=== PATIENT | male | born 1955 | race Caucasian/White ===

== ENCOUNTER 2023-11-26 07:50 | Emergency (ER) | payer MEDICARE, OTHER, SELFPAY ==
[2023-11-26 07:59] VITALS: BP 132/77
[2023-11-26] MEDS: NSS 1000 IV (09:07)
[2023-11-26] MEDS: TYLENOL 650 MG PO (09:08)
[2023-11-26 09:09] VITALS: BP 127/73; BMI 27.0
[2023-11-26 09:12] LABS: Urine Albumin Trace (Neg - Trace); Urine Bilirubin Negative (Negative); Urine Character Clear (Clear); Urine Color Yellow; Urine Glucose Negative (Negative); Urine Ketone Negative (Negative); Urine Leukocyte 2+ (Negative); Urine Nitrite Negative (Negative); Urine Occult Blood 1+ (Negative); Urine Urobilinogen Negative (Neg - 1+); Urine pH 6.5 (5.0-9.0)
[2023-11-26 09:14] LABS: % Basophils 0.3 % (0-2); % Immature Granulocytes 0.5 % (0-0.5); % Lymphocytes 10.1 % (20.5-51.1); % Monocytes 8.5 % (1.7-9.3); % Neutrophils 79.6 % (42.2-75.2); Absolute Eosinophils 0.1 10^3/uL (0-0.7); Absolute Immature Granulocytes 0.1 10^3/uL (0-0.05); Absolute Lymphocytes 1.3 10^3/uL (1.2-3.4); Absolute Monocytes 1.1 10^3/uL (0.1-0.6); Absolute Neutrophils 10.1 10^3/uL (1.4-6.5); Hematocrit 35.8 % (39.0-52.0); Hemoglobin 12.3 g/dL (13.0-18.0); Mean Corp Hgb Conc. 34.4 g/dL (33.0-37.0); Mean Corpuscular Hgb 29.3 pg (27.0-31.0); Mean Corpuscular Volume 85.2 fL (80.0-94.0); Mean Platelet Volume 9.1 fL (7.4-10.4); Nucleated Red Blood Cells % 0 % (-); Platelet Count 283 10^3/uL (130-400); Red Cell Dist. Width 14.2 % (11.5-14.5); White Blood Cell Count 12.7 10^3/uL (4.8-10.8)
[2023-11-26 09:27] LABS: ALT (SGPT) 27 U/L (0-50); AST (SGOT) 23 U/L (17-59); Albumin 3.9 g/dl (3.5-5.0); Alkaline Phosphatase 59 U/L (38-126); Blood Urea Nitrogen 17 mg/dl (9-20); Calcium 9.2 mg/dl (8.4-10.2); Carbon Dioxide 28 mmol/L (22-30); Chloride 105 mmol/L (98-107); Estimated Creatinine Clearance 83 ml/min; Glucose 122 mg/dl (70-99); Lipase 62 U/L (23-300); Potassium 3.6 mmol/L (3.5-5.1); Sodium 137 mmol/L (135-145); Total Bilirubin 0.8 mg/dl (0.2-1.3); eGFR > 60.00
--- NOTE | 2023-11-26 09:27 | ED.GENMED ---
Addendum entered and electronically signed by Martha Pandya PA-C 11/29/23 07:20:
urine culture grew out proteus
on cefdinir
sensitive, no treatment change required
Original Note:
History of Present Illness
General
Chief Complaint: Abdominal Symptoms
Source: patient
Exam Limitations: none
Time Seen by Provider: 11/26/23 08:01
Nursing documentation reviewed up to this point in time: agreed with
Travel History
Have you had any contact with someone who has COVID-19?: No
Do you have any symptoms of coronavirus? Fever > 100 degrees, chills, cough, shortness of breath, sore throat, loss of taste or smell, muscle aches, or headache?: No
History of Present Illness
History of Present Illness:
68-year-old male with a history of hypertension, hyperlipidemia and UTIs followed by dr fajardo from urology presents for symptoms suspicious for UTI which began a few days ago with left flank pain followed by dysuria and urinary frequency. Patient
has never had any obstructive uropathy. Within the past few months he had a cystoscopy which was normal. Patient says his last UTI was sometime in the fall 2022. He was hospitalized once for pyelonephritis,
Patient thinks he had a fever yesterday because he felt hot and then cold. He did not check his temperature. He denies any nausea, vomiting, diarrhea, hematuria
Past History
Past History
ED Past Medical History: HTN and Hypercholesterolemia
ED Past Surgical History: None
Social History
Tobacco: Non-smoker
Alcohol: Daily
Drug: None
Personal:
Living: with family
Employment: Employed
Family History
Family History: Other
Review of Systems
Review of Systems
Allergies reviewed?: Yes
All Other Systems: Not applicable
Phy Exam
Physical Exam
Physical Exam:
GENERAL: Alert, appears comfortable
Neck: supple
CARDIAC: Regular rate and rhythm .
LUNGS: Clear breath sounds bilaterally, no acute respiratory distress, no wheezes/rales/rhonchi
ABDOMEN: Soft, normal bowel sounds, nondistended, no abdominal tenderness no guarding, no rebound, neg salazar's
Mild left CVA tenderness
: normal inspection of region
nontender testicles b/l
no rashes
NEUROLOGICAL: Alert and oriented, no focal neuro deficits
SKIN: Warm and dry, skin intact.
PSYCH: Normal and appropriate interaction.
Course
Orders/Labs/Results
Orders:
Orders
11/26/23 08:24
0.9% Sodium Chloride 1000 ml [Nss] 1,000 ml IV BOLUS
Acetaminophen [Tylenol] 650 mg PO NOW STA
11/26/23 08:59
Complete Blood Count/With Diff Urgent
Comprehensive Metabolic Panel Urgent
Lipase Urgent
Urinalysis Reflex To Culture Urgent
Date Specimen was Collected: 11/26/23
Time Specimen was Collected: 08:56
Urine Microscopic Reflex Cult Urgent
Urine Culture Urgent
ROMARIO Source: U
Specimen Description:
Date Specimen was Collected: 11/26/23
Time Specimen was Collected: 08:56
11/26/23 09:17
CT Abd/Pel (IV only)-DH only Urgent
Comment:
Reason For Exam: left falnk pain, fever, uti
11/26/23 11:24
CefTRIAXone [Rocephin] 1,000 mg IV NOW STA
11/26/23 11:37
Sterile Water [Sterile Water For Injection] 10 ml .ROUTE .STK-MED ONE
11/26/23 11:39
Sterile Water [Sterile Water For Injection] 10 ml .ROUTE .STK-MED ONE
Abnormal Lab Results
11/26/23
08:59
WBC 12.7 H 10^3/uL
(4.8-10.8)
RBC 4.20 L 10^6/uL
(4.70-6.10)
Hgb 12.3 L g/dL
(13.0-18.0)
Hct 35.8 L %
(39.0-52.0)
Abs Immat Gran (auto) 0.1 H 10^3/uL
(0-0.05)
Absolute Neuts (auto) 10.1 H 10^3/uL
(1.4-6.5)
Absolute Monos (auto) 1.1 H 10^3/uL
(0.1-0.6)
Neutrophils % 79.6 H %
(42.2-75.2)
Lymphocytes % 10.1 L %
(20.5-51.1)
Glucose 122 H mg/dl
(70-99)
Ur Occult Blood Reflex 1+ A
(Negative)
Leukocyte Esterase Rfl 2+ A
(Negative)
Urine RBC 3-6 A /HPF
(0-2)
Urine WBC (Reflex) 26-30 A /HPF
(0-5)
Urine Bacteria (Reflex) Few A
(Negative)
11/26/23 08:59
11/26/23 08:59
Vital Signs
Initial and Last Documented VS:
Initial Vital Signs
Temp Pulse Resp BP Pulse Ox
98.0 F 82 16 132/77 98
11/26/23 07:59 11/26/23 07:59 11/26/23 07:59 11/26/23 07:59 11/26/23 07:59
Last Documented Vital Signs
Temp Pulse Resp BP Pulse Ox
98.0 F 64 18 127/74 95
11/26/23 07:59 11/26/23 11:43 11/26/23 11:43 11/26/23 11:43 11/26/23 11:43
MDM/Problems Addressed
Differential Diagnosis Includes:
UTI, obstructive uropathy, pyelonephritis
MDM/Problems Addressed:
68-year-old male with a history of previous UTIs presents with similar symptoms starting with left flank pain followed by dysuria and frequency. He has no radiation into his testicle or testicular pain, rectal pressure, penile discharge. He
thought he may have had a fever yesterday but nothing today. He is not having any vomiting. He is never had obstructive uropathy in the past.
On exam the patient had mild tenderness to the bladder and minimal CVA tenderness on the left
He had a normal temperature
His white count was mildly elevated at 12.7 with a left shift, creatinine was normal, UA is positive for blood, 2+ leukocytes, 26-38 WBCs, few bacteria and only 3-[address] with contrast shows no obvious signs of hydronephrosis,
pyelonephritis
Patient is feeling well, rechecked his temperature at 98.5. Will treat with 1 dose of Rocephin in the ER and discharged on cefdinir twice daily. Previously patient has had Citrobacter and E. coli UTIs with sensitivity to third-generation
cephalosporins
*Critical Care Note
Total Time (30-74mins, 75-104mins- exclusive of procedures): Not Applicable
ED Attending Note
-
Portions of this chart may have been created with voice recognition software.� Occasional wrong word or��sound alike� substitutions may have occurred due to the inherent limitations of voice recognition software.
Discharge Plan
Departure
Patient Disposition: Home (Routine Discharge)
Date of Disposition: 11/26/23
Time of Disposition: 11:41
Patient with high blood pressure during this ER visit?: No
Condition: Fair
Covid-19: Not Applicable
Discharge Problem:
UTI (urinary tract infection)
Instructions: Urinary Tract Infection, Adult (DC)
Prescriptions:
New
cefdinir 300 mg capsule
300 mg PO Q12H Qty: 20 0RF
No Action
losartan 50 MG tablet
100 mg PO QPM
simvastatin 20 MG tablet
20 mg PO HS
amlodipine 5 MG tablet
5 mg PO DAILY
hydrochlorothiazide 25 MG tablet
25 mg PO DAILY
levofloxacin [Levaquin] 500 MG tablet
500 mg PO DAILY Qty: 6 0RF
levofloxacin [Levaquin] 500 MG tablet
500 mg PO Daily Qty: 6 0RF
cephalexin 500 mg capsule
500 mg PO QID 7 Days Qty: 28 0RF
sulfamethoxazole-trimethoprim [Bactrim DS] 800-160 mg tablet
1 tab PO BID 7 Days Qty: 14 0RF
Referrals:
Michael Fajardo MD [Active] - Follow up in 5-7 days
Joseph Nails MD [Family Provider] -
Activity Restrictions/Additional Instructions:
Start cefdinir tonight before bed and then start taking it twice a day for the following 9 days.
You were given a dose of IV antibiotics prior to discharge. Follow-up with urology for any persistent symptoms. Return to the ER for fever, worsening pain, inability to urinate, bloody urine, vomiting or any concerns
Interventions
Interventions:
*Risk Screen - Suicide Last Done: 11/26/23 09:09
*General Assessment Last Done: 11/26/23 09:09
*Neglect/Abuse Screening Last Done: 11/26/23 09:09
ED- Fall Risk Assessment Last Done: 11/26/23 09:09
*ED COVID-19 Vaccine History Last Done: 11/26/23 07:59
*Nursing Disposition Last Done: 11/26/23 11:52
QV-Kwbhej-Qzjjacezit Assessment Last Done: 11/26/23 09:09
Discharge Date and Time
Discharge Date/Time: 11/26/23 11:52
Print Language: [id number]
[2023-11-26 09:34] LABS: Urine Bacteria Few (Negative); Urine Hyaline Cast 0-2 /LPF (0-2); Urine White Cell 26-30 /HPF (0-5)
[2023-11-26] MEDS: ROCEPHIN 1000 MG IV (11:40)
[2023-11-26 11:43] VITALS: BP 127/74
== END 2023-11-26 11:52 | disposition home or self-care (01) ==
LOC: EMR 07:50
PROVIDERS: Physician Assistant; EMERGENCY PHYSICIAN Emergency Medicine; FAMILY PHYSICIAN Family Medicine
DX: N39.0 Urinary tract infection, site not specified (principal); I10 Essential (primary) hypertension; E78.00 Pure hypercholesterolemia, unspecified; Z87.440 Personal history of urinary (tract) infections
CPT/HCPCS: 99284; 96361; 96374; 74177; 80053; 81003; 81015; 83690; 85025; 87086; 87088; 87186; Q9967

== ENCOUNTER 2024-02-10 07:03 | Outpatient (RCR) | payer MEDICARE, OTHER, SELFPAY | END 2024-02-10 23:59 | disposition home or self-care (01) | LOC: RPT 07:03 | PROVIDERS: ATTENDING PHYSICIAN Physical Medicine & Rehabilitation; FAMILY PHYSICIAN Family Medicine | DX: Z47.89 Encounter for other orthopedic aftercare (principal); S72.92XD Unspecified fracture of left femur, subsequent encounter for closed fracture with routine healing; R26.89 Other abnormalities of gait and mobility; M62.81 Muscle weakness (generalized); R26.2 Difficulty in walking, not elsewhere classified; Z73.6 Limitation of activities due to disability; S72.309D Unspecified fracture of shaft of unspecified femur, subsequent encounter for closed fracture with routine healing | CPT/HCPCS: 97010; 97110; 97116; 97162 ==

== ENCOUNTER 2024-03-16 08:53 | Outpatient (RCR) | payer MEDICARE, OTHER, SELFPAY | END 2024-03-16 23:59 | disposition home or self-care (01) | LOC: RPT 08:53 | PROVIDERS: ATTENDING PHYSICIAN Physical Medicine & Rehabilitation; FAMILY PHYSICIAN Family Medicine | DX: S72.309D Unspecified fracture of shaft of unspecified femur, subsequent encounter for closed fracture with routine healing (principal); Z47.89 Encounter for other orthopedic aftercare (principal); S72.92XD Unspecified fracture of left femur, subsequent encounter for closed fracture with routine healing; R26.89 Other abnormalities of gait and mobility; Z73.6 Limitation of activities due to disability; M62.81 Muscle weakness (generalized); R26.2 Difficulty in walking, not elsewhere classified | CPT/HCPCS: 97010; 97110; 97535 ==

== ENCOUNTER 2024-04-14 09:01 | Outpatient (RCR) | payer MEDICARE, OTHER, SELFPAY | END 2024-04-14 23:59 | disposition home or self-care (01) | LOC: RPT 09:01 | PROVIDERS: ATTENDING PHYSICIAN Physical Medicine & Rehabilitation; FAMILY PHYSICIAN Family Medicine | DX: Z47.89 Encounter for other orthopedic aftercare (principal); S72.92XD Unspecified fracture of left femur, subsequent encounter for closed fracture with routine healing; R26.89 Other abnormalities of gait and mobility; Z73.6 Limitation of activities due to disability; M62.81 Muscle weakness (generalized); R26.2 Difficulty in walking, not elsewhere classified | CPT/HCPCS: 97010; 97110; 97112 ==

== ENCOUNTER 2024-05-10 09:30 | Outpatient (RCR) | payer MEDICARE, OTHER, SELFPAY | END 2024-05-10 23:59 | disposition home or self-care (01) | LOC: RPT 09:30 | PROVIDERS: ATTENDING PHYSICIAN Physical Medicine & Rehabilitation; FAMILY PHYSICIAN Family Medicine | DX: Z47.89 Encounter for other orthopedic aftercare (principal); S72.302A Unspecified fracture of shaft of left femur, initial encounter for closed fracture (principal); S72.92XD Unspecified fracture of left femur, subsequent encounter for closed fracture with routine healing; R26.89 Other abnormalities of gait and mobility; Z73.6 Limitation of activities due to disability; M62.81 Muscle weakness (generalized); R26.2 Difficulty in walking, not elsewhere classified | CPT/HCPCS: 97010; 97110; 97112 ==

== ENCOUNTER 2024-06-14 06:20 | Outpatient (RCR) | payer MEDICARE, OTHER, SELFPAY | END 2024-06-14 10:22 | disposition home or self-care (01) | LOC: RPT 06:20 | PROVIDERS: ATTENDING PHYSICIAN Physical Medicine & Rehabilitation; FAMILY PHYSICIAN Family Medicine | DX: Z47.89 Encounter for other orthopedic aftercare (principal); R26.89 Other abnormalities of gait and mobility; S72.92XD Unspecified fracture of left femur, subsequent encounter for closed fracture with routine healing; Z73.6 Limitation of activities due to disability; M62.81 Muscle weakness (generalized); R26.2 Difficulty in walking, not elsewhere classified | CPT/HCPCS: 97010; 97110; 97112 ==